=== PATIENT | male | born 1965 ===

== ENCOUNTER 2023-04-12 04:29 | Inpatient (IN) ==
[2023-04-12] MEDS ORDERED: Lactated Ringers 1000 ml BAG 1,000 ML IV ONE (04:30)
[2023-04-12] MEDS ORDERED: methylPREDNISolone SOD SUCC 125 mg 2 ML VIAL ONE (04:44)
[2023-04-12] MEDS ORDERED: methylPREDNISolone SOD SUCC 125 mg 2 ML VIAL IV ONE (04:45)
[2023-04-12 04:46] LABS: Venous Bicarbonate HCO3 22.6 mmol/L (24-28)
[2023-04-12] MEDS ORDERED: ECALLANTIDE SUBCUT ONE (04:48)
[2023-04-12 04:51] LABS: ABS Basophils 0.1 10^3/uL (0.0-0.1); ABS Neutrophils 7.6 10^3/uL (1.5-7.6); ABS Nucleated RBC 0.01 10^3/ul; Eosinophil % 0.3 %; Hematocrit 39.9 % (38-53); Hemoglobin 13.4 g/dL (13.2-16.3); Lymphocyte % 36.6 %; Mean Corpuscular Hemoglobin 29.6 pg (27-33); Mean Corpuscular Hgb Conc 33.7 g/dL (31-36); Mean Corpuscular Volume 87.9 fL (80-97); Mean Platelet Volume 9.9 fL (7.5-11.2); Nucleated Red Blood Cells % 0.1 /100 WBC (0.0-0.4); Platelet Count 265 10^3/uL (150-450); Red Blood Count 4.53 10^6/uL (4.06-5.63); Red Cell Distribution Width 16.2 % (12-17); White Blood Count 13.7 10^3/uL (3.6-10.2)
[2023-04-12 04:57] LABS: INR 1.06 (0.88-1.18)
[2023-04-12] MEDS ORDERED: Phenylephrine 0.5% NASAL BTL ONE (05:12)
[2023-04-12 05:29] LABS: Albumin 4.5 g/dL (3.2-5.2); Albumin/Globulin Ratio 1.9 (1-3); Calcium 9.9 mg/dL (8.6-10.3); Creatinine, Serum 1.49 mg/dL (0.67-1.17); Globulin 2.4 g/dL (2-4); Potassium 4.1 mmol/L (3.5-5.0); Total Bilirubin 0.4 mg/dL (0.2-1.0); Total Protein 6.9 g/dL (6.4-8.9); eGFR CKD-EPI 54.1 (>60)
[2023-04-12] MEDS ORDERED: Benzocaine/Butamben/Tetracain (CETACAINE - SINGLE USE) 5 gm TOPICAL ONE (05:30)
[2023-04-12] MEDS ORDERED: Ondansetron 4 mg VIAL 2 MG/ML 2 ml VIAL ONE (05:32)
[2023-04-12] MEDS ORDERED: Ondansetron 4 mg VIAL 2 MG/ML 2 ml VIAL IV ONE (05:32)
[2023-04-12] MEDS ORDERED: Dexmedetomidine 200 mcg/2 ml 2 ml VIAL (200 mcg) ONE (05:40)
[2023-04-12] MEDS ORDERED: Ketamine HCL 50 mg/ml 10 ml VIAL (500 MG) ONE (05:41)
[2023-04-12] MEDS ORDERED: Lidocaine 2% JELLY 20 ML (for OR use) ONE (05:49)
[2023-04-12 05:51] LABS: High Sensitivity Troponin 1 Hr 12 pg/mL (<20)
[2023-04-12] MEDS ORDERED: Lidocaine 4% TOPICAL 50 ML TOP.SOLN ONE (05:54)
[2023-04-12] MEDS ORDERED: Dexmedetomidine 1,000 MCG in NS 0.9% 250 ML IV SCH (06:00)
[2023-04-12] MEDS ORDERED: Albuterol HFA INHALER 8 gm MDI INH PRN (08:58)
[2023-04-12] MEDS ORDERED: Gemfibrozil 600 mg PO SCH (09:00)
[2023-04-12] MEDS: methylPREDNISolone SOD SUCC 40 mg/ml 1 ml VIAL IV SCH (12:35)
[2023-04-12] MEDS ORDERED: Enoxaparin 40 MG/0.4 ML SYR SUBCUT SCH (13:00)
[2023-04-12] MEDS: Famotidine IV 10 MG/ML 2 ml VIAL (20 mg) IV SLOW PU SCH (21:00)
[2023-04-13] MEDS: methylPREDNISolone SOD SUCC 40 mg/ml 1 ml VIAL IV SCH ×2 (00:19→11:57)
[2023-04-13 04:37] LABS: ABS Lymphocytes 1.3 10^3/uL (1.0-4.8); ABS Monocytes 0.3 10^3/uL (0.0-1.1); ABS Neutrophils 13.7 10^3/uL (1.5-7.6); ABS Nucleated RBC 0.02 10^3/ul; Hematocrit 34.2 % (38-53); Hemoglobin 11.5 g/dL (13.2-16.3); Lymphocyte % 8.8 %; Mean Corpuscular Hemoglobin 29.7 pg (27-33); Mean Corpuscular Hgb Conc 33.8 g/dL (31-36); Mean Corpuscular Volume 87.9 fL (80-97); Nucleated Red Blood Cells % 0.1 /100 WBC (0.0-0.4); Platelet Count 217 10^3/uL (150-450); Red Blood Count 3.88 10^6/uL (4.06-5.63); Red Cell Distribution Width 16.1 % (12-17); White Blood Count 15.4 10^3/uL (3.6-10.2)
[2023-04-13 05:09] LABS: Calcium 9.5 mg/dL (8.6-10.3); Creatinine, Serum 1.24 mg/dL (0.67-1.17); Potassium 5.2 mmol/L (3.5-5.0); eGFR CKD-EPI 67.4 (>60)
[2023-04-13] MEDS: Famotidine IV 10 MG/ML 2 ml VIAL (20 mg) IV SLOW PU SCH (08:27)
[2023-04-13 12:34] VITALS: BP 129/79
== END 2023-04-13 14:56 | DRG 811 ==
LOC: ED 04:29 → EDHOLD 07:12 → ICU 08:22
PROVIDERS: ADMIT Student in an Organized Health Care Education/Training Program; ATTEND Internal Medicine Critical Care Medicine